=== PATIENT | female | born 1950 | race Caucasian/White ===

== ENCOUNTER 2018-08-25 15:57 | Emergency (ER) | payer MEDICARE, OTHER ==
[2018-08-25 16:05] VITALS: BP 147/78
--- NOTE | 2018-08-25 17:54 | ED Physician Documentation ---
PD HPI UPPER EXT INJURY - Stated complaint Stated Complaint: R HAND LAC - Chief complaint Chief Complaint: Laceration - History obtained from History obtained from: Patient - History of Present Illness Location: Right, Hand Type of injury: Laceration Where injury occurred: Home Timing - onset: Today (Just prior to arrival) Associated symptoms: No: Weakness, Numbness - Additonal information Additional information: The patient is a 67-year-old female who cut the palm of her right hand with a knife while cutting pork just prior to arrival. She is right-hand dominant. She denies any other injuries. Her tetanus status is up-to-date. Review of Systems Constitutional: denies: Fever Skin: reports: Laceration (s) (right hand) Musculoskeletal: reports: Extremity pain (right hand) Neurologic: denies: Focal weakness, Numbness PD PAST MEDICAL HISTORY - Past Medical History Past Medical History: No - Allergies Allergies/Adverse Reactions: Allergies Allergy/AdvReac Type Severity Reaction Status Date / Time No Known Drug Allergies Allergy Verified 08/25/18 16:01 - Social History Does the pt smoke?: No Smoking Status: Never smoker - Immunizations Immunizations are current?: Yes PD ED PE NORMAL - Vitals Vital signs reviewed: Yes (Borderline systolic hypertension initially.) - General General: Alert and oriented X 3, Well developed/nourished - HEENT HEENT: Atraumatic - Respiratory Respiratory: No respiratory distress - Derm Derm: No rash - Extremities Extremities: Other (2.5 cm laceration across the ulnar palm of the right hand. Distal neurovascular is intact. She has full flexion and extension of the DIP, PIP, and MCP joints, against resistance.) - Neuro Neuro: Alert and oriented X 3, No motor deficit, No sensory deficit Results - Vitals Vitals: Vital Signs - 24 hr 08/25/18 16:01 Temperature 36.6 C Heart Rate 75 Respiratory 16 Rate Blood Pressure 147/78 H O2 Saturation 96 Oxygen O2 Source Room air Procedures - Laceration (location) right hand Length in cm: 2.5 Wound type: Linear Neurovascular status: Sensory intact, Motor intact, Vascular intact Tendon involvement: Tendon intact Anesthesia: Lidocaine 1% with epi Wound Preparation: Hibiclens, Irrigated copiously NS, Wound explored, To the base. No: FB identified Skin layer closure: Nylon, Interrupted, Size #-0 - enter number (5), Sutures - enter # (6) Other: Patient tolerated well, No complications, Neurovascular intact, Dressing applied, Tetanus UTD Complexity: Simple PD MEDICAL DECISION MAKING - ED course Complexity details: considered differential, d/w patient ED course: The patient's presentation is significant for a palmar right hand laceration. There is no evidence of vascular, nerve, or tendon involvement. Treatment in the emergency department included thorough irrigation of the wound and suture repair after local anesthetic using 1% lidocaine with epinephrine. Antibiotic ointment and gauze dressing was applied. I discussed with the patient and her family the expected course of injury, appropriate wound care and timing for suture removal, as well as potentially worrisome signs or symptoms that should prompt reevaluation in the emergency department. Departure - Departure Disposition: 01 Home, Self Care Clinical Impression: Laceration of hand, right Qualifiers: Encounter type: initial encounter Foreign body presence: without foreign body Qualified Code(s): S61.411A - Laceration without foreign body of right hand, initial encounter Condition: Stable Instructions: ED Laceration Hand Comments: Keep the wound clean, and apply antibiotic ointment daily. Follow-up for suture removal in 10 to 12 days. Return to the emergency department sooner if you develop any sign of infection, or otherwise worsening symptoms.
== END 2018-08-25 18:03 | disposition home or self-care (01) ==
LOC: ED 15:57
DX: S61.411A Laceration without foreign body of right hand, initial encounter (principal); W26.0XXA Contact with knife, initial encounter; Y93.G1 Activity, food preparation and clean up; Y92.009 Unspecified place in unspecified non-institutional (private) residence as the place of occurrence of the external cause
CPT/HCPCS: 12001; 99282; 99283